=== PATIENT | female | born 1975 | race Caucasian/White ===

== ENCOUNTER 2018-02-05 18:52 | Emergency (ER) | payer MEDICAID ==
[~2018-02-05] VITALS: Ht 167.6 cm; Wt 87.0 kg
[~2018-02-05 18:52] MED LIST: LIDO700A5 TOP; LISINOPRIL; MAGN296S50 PO; METH-603 PO; NEBUTONE; ORPH100T2 PO; OXYC30TA88 PO; SENN8.6T19 PO
[2018-02-05 19:28] LABS: INR 0.9 INR; PARTIAL THROMBOPLASTIN TIME 25 SECONDS (22-32); PROTHROMBIN TIME 9.7 SECONDS (9.0-12.0)
[2018-02-05 19:38] LABS: ALANINE AMINOTRANSFERASE 27 U/L (12-78); ALBUMIN 4.1 G/DL (3.4-5.0); ALBUMIN/GLOBULIN RATIO 0.9 (1.1-1.5); ALKALINE PHOSPHATASE 55 IU/L (46-116); ANION GAP 9 (8-16); ASPARTATE AMINO TRANSFERASE 16 U/L (10-37); BILIRUBIN,TOTAL 0.6 MG/DL (0.1-1.0); BLOOD UREA NITROGEN 10 MG/DL (7-18); BUN/CREATININE RATIO 14.5 (6.6-38.0); CALCIUM 9.4 MG/DL (8.5-10.1); CHLORIDE 103 MMOL/L (99-107); CREATININE 0.69 MG/DL (0.40-0.90); POTASSIUM 4.4 MMOL/L (3.5-5.1); SODIUM 139 MMOL/L (135-145); TOTAL CARBON DIOXIDE 27.1 MMOL/L (24-32); TOTAL PROTEIN 8.5 G/DL (6.4-8.2); eGFR > 90 ML/MIN
[2018-02-05 19:41] LABS: GLUCOSE 101 MG/DL (70-104)
[2018-02-05 19:44] LABS: BASOPHILS % (AUTO) 0.6 % (0-1); EOSINOPHILS # (AUTO) 0.1 X10'3 (0-0.9); EOSINOPHILS % (AUTO) 1.2 % (0-6); HEMATOCRIT 41.1 % (35.0-45.0); HEMOGLOBIN 14.1 g/dl (12.0-16.0); LYMPHOCYTES # (AUTO) 1.4 X10'3 (1.1-4.8); LYMPHOCYTES % (AUTO) 20.3 % (21-51); MEAN CORPUSCULAR HGB CONC 34.3 % (33.0-36.5); MEAN CORPUSCULAR VOLUME 90.2 FL (78-98); MEAN PLATELET VOLUME 7.5 FL (7.4-10.4); MONOCYTES # (AUTO) 0.3 X10'3 (0-0.9); MONOCYTES % (AUTO) 4.3 % (2-12); NEUTROPHILS # (AUTO) 5.2 X10'3 (1.8-7.7); NEUTROPHILS % (AUTO) 73.6 % (42-75); PLATELET COUNT 308 X10'3 (140-440); RED BLOOD COUNT 4.55 X10'6 (4.20-5.60); RED CELL DISTRIBUTION WIDTH 13.4 % (11.5-14.5); WHITE BLOOD COUNT 7.1 X10'3 (4.5-11.0)
[2018-02-05] MEDS ORDERED: diphenhydrAMINE 25mg capsule PO ONE (21:20)
[2018-02-05] MEDS ORDERED: proCHLORperazine 10 MG/2 ml inj IM ONE (21:20)
[2018-02-05] MEDS ORDERED: HYDROcodone/acetaminophen 10/325mg tab PO ONE (21:20)
[2018-02-05] MEDS ORDERED: ketorolac trometh inj. 60 MG/2 ML VIAL IM ONE (21:20)
[2018-02-05] MEDS ORDERED: HYDR200T80 PO (21:26)
[2018-02-05] MEDS ORDERED: BUPR-94 PO (21:27)
[2018-02-05] MEDS ORDERED: diphenhydrAMINE 50 mg/ml inj IM ONE (21:35)
[2018-02-05] MEDS ORDERED: HYDROmorphone 2mg tablet PO PRN (22:05)
[2018-02-05 22:49] VITALS: BP 136/84
== END 2018-02-05 22:52 | disposition home or self-care (01) ==
LOC: ER 18:53
DX: M79.1 Myalgia (principal); R07.9 Chest pain, unspecified; R11.2 Nausea with vomiting, unspecified; R42 Dizziness and giddiness; G89.29 Other chronic pain; K21.9 Gastro-esophageal reflux disease without esophagitis; Z90.49 Acquired absence of other specified parts of digestive tract; Z90.710 Acquired absence of both cervix and uterus; Z79.899 Other long term (current) drug therapy; Z56.0 Unemployment, unspecified
CPT/HCPCS: 36415; 71045; 80053; 84484; 85025; 85610; 85730; 93005; 96372; 99285; J0780; J1200; J1885

== ENCOUNTER 2018-07-07 01:02 | Emergency (ER) | payer MEDICAID ==
[~2018-07-07] VITALS: Ht 167.6 cm; Wt 84.0 kg
[~2018-07-07 01:02] MED LIST changes: +BUPR-94 PO; +HYDR200T80 PO; -LIDO700A5 TOP; -LISINOPRIL; -MAGN296S50 PO; -ORPH100T2 PO; -SENN8.6T19 PO
[2018-07-07] MEDS ORDERED: morphine 4 MG/ML inj SYRINge IM ONE (02:00)
[2018-07-07] MEDS ORDERED: ketorolac trometh inj. 60 MG/2 ML VIAL IM ONE (02:00)
[2018-07-07] MEDS ORDERED: proCHLORperazine 10mg tablet PO ONE (02:00)
[2018-07-07 02:23] VITALS: BP 133/89
== END 2018-07-07 02:33 | disposition home or self-care (01) ==
LOC: ER 01:03
DX: S16.1XXA Strain of muscle, fascia and tendon at neck level, initial encounter (principal); K21.9 Gastro-esophageal reflux disease without esophagitis; Z56.0 Unemployment, unspecified; Z90.49 Acquired absence of other specified parts of digestive tract; Z90.710 Acquired absence of both cervix and uterus; X58.XXXA Exposure to other specified factors, initial encounter; Y93.89 Activity, other specified; Y92.89 Other specified places as the place of occurrence of the external cause; Y99.8 Other external cause status
CPT/HCPCS: 96372; 99284; J1885; J2270; Q0164

== ENCOUNTER 2018-07-08 05:28 | Emergency (ER) | payer MEDICAID ==
[~2018-07-08] VITALS: Ht 167.6 cm; Wt 88.7 kg
[2018-07-08] MEDS ORDERED: orphenadrine citrate 60mg/2ml inj. IM ONE ×2 (06:20→07:35)
[2018-07-08] MEDS ORDERED: ketorolac trometh inj. 60 MG/2 ML VIAL IM ONE (06:20)
[2018-07-08] MEDS ORDERED: ondansetron/PF 4mg/2ml inj IM ONE (06:20)
[2018-07-08] MEDS ORDERED: morphine 4 MG/ML inj SYRINge IM ONE (06:20)
[2018-07-08] MEDS ORDERED: morphine 4 MG/ML inj SYRINge IV ONE (06:25)
[2018-07-08] MEDS ORDERED: normal saline 1000ml 1,000 ML IV ONE (06:25)
[2018-07-08] MEDS ORDERED: ketorolac trometh. 30mg/ml inj. IV ONE (06:25)
[2018-07-08] MEDS ORDERED: ondansetron/PF 4mg/2ml inj IV ONE (06:25)
[2018-07-08] MEDS ORDERED: triamcinolone acetonide 40mg/ml inj IM ONE (06:25)
[2018-07-08 08:00] VITALS: BP 128/81
== END 2018-07-08 08:02 | disposition home or self-care (01) ==
LOC: ER 05:29
DX: M54.2 Cervicalgia (principal); K21.9 Gastro-esophageal reflux disease without esophagitis; G89.29 Other chronic pain; Z56.0 Unemployment, unspecified; Z90.49 Acquired absence of other specified parts of digestive tract; Z90.710 Acquired absence of both cervix and uterus; Z98.890 Other specified postprocedural states; Z79.899 Other long term (current) drug therapy
CPT/HCPCS: 20552; 96361; 96372; 96374; 96375; 99284; J1885; J2270; J2360; J2405; J3301; J7030

== ENCOUNTER 2018-09-28 09:57 | Emergency (ER) | payer MEDICAID ==
[~2018-09-28 09:57] MED LIST changes: +ONDA8TAB9 PO
== END 2018-09-28 11:20 | disposition left against medical advice (07) ==
LOC: ER 09:57
DX: M54.2 Cervicalgia (principal); Z53.21 Procedure and treatment not carried out due to patient leaving prior to being seen by health care provider

== ENCOUNTER 2019-01-31 00:57 | Emergency (ER) | payer MEDICAID ==
[~2019-01-31] VITALS: Ht 167.6 cm; Wt 78.2 kg
[2019-01-31 01:06] VITALS: BP 183/121
[2019-01-31] MEDS ORDERED: methylPREDNISolone sod succ 125mg/2ml vial IM ONE (02:35)
[2019-01-31] MEDS ORDERED: ketorolac trometh inj. 60 MG/2 ML VIAL IM ONE (02:35)
== END 2019-01-31 02:51 | disposition home or self-care (01) ==
LOC: ER 00:58
DX: R51 Headache (principal); M79.641 Pain in right hand; M79.642 Pain in left hand; G89.29 Other chronic pain; K21.9 Gastro-esophageal reflux disease without esophagitis; Z90.49 Acquired absence of other specified parts of digestive tract; Z90.710 Acquired absence of both cervix and uterus; Z98.890 Other specified postprocedural states; Z56.0 Unemployment, unspecified; Z79.899 Other long term (current) drug therapy
CPT/HCPCS: 96372; 99283; J1885; J2930

== ENCOUNTER 2019-03-01 02:09 | Emergency (ER) | payer MEDICAID ==
[~2019-03-01] VITALS: Ht 162.6 cm; Wt 74.8 kg
[2019-03-01] MEDS ORDERED: ibuprofen 200mg tablet PO ONE (03:25)
[2019-03-01] MEDS ORDERED: morphine 4 MG/ML inj SYRINge IM ONE ×2 (03:25→04:10)
[2019-03-01] MEDS ORDERED: HYDROmorphone 1 mg/ml syringe IV ONE (04:30)
[2019-03-01] MEDS ORDERED: ketorolac tromethamine 15mg/ml inj. IV ONE (04:30)
--- NOTE | 2019-03-01 05:29 | NUR ---
PT APPEARS TO BE SLEEPING COMFORTABLY
[2019-03-01] MEDS ORDERED: CYCL-1 PO (05:34)
[2019-03-01] MEDS ORDERED: HYDR-4353 PO (05:34)
[2019-03-01 05:37] VITALS: BP 145/95
== END 2019-03-01 05:45 | disposition home or self-care (01) ==
LOC: ER 02:10
DX: M25.512 Pain in left shoulder (principal); K21.9 Gastro-esophageal reflux disease without esophagitis; G89.29 Other chronic pain; F12.90 Cannabis use, unspecified, uncomplicated; F17.200 Nicotine dependence, unspecified, uncomplicated; Z90.49 Acquired absence of other specified parts of digestive tract; Z90.710 Acquired absence of both cervix and uterus; Z98.890 Other specified postprocedural states; Z79.899 Other long term (current) drug therapy; Z56.0 Unemployment, unspecified
CPT/HCPCS: 29105; 73030; 96372; 96374; 96375; 99283; J1170; J1885; J2270

== ENCOUNTER 2020-08-07 09:24 | Emergency (ER) | payer MEDICAID ==
[~2020-08-07] VITALS: Ht 167.6 cm; Wt 104.5 kg
[~2020-08-07 09:24] MED LIST changes: +CYCL-1 PO; +OXYC30TA PO; -OXYC30TA88 PO
[2020-08-07 10:08] VITALS: BP 143/71
--- NOTE | 2020-08-07 10:09 | NUR ---
R/T AT BEDSIDE, PT GETING BREATHING TREATMENT, NO NEEDS AT THIS TIME
[2020-08-07] MEDS ORDERED: SULF1TAB49 PO (10:18)
== END 2020-08-07 10:33 | disposition home or self-care (01) ==
LOC: ER 09:26
DX: L03.114 Cellulitis of left upper limb (principal); M79.602 Pain in left arm; M25.532 Pain in left wrist; K21.9 Gastro-esophageal reflux disease without esophagitis; G89.29 Other chronic pain; F31.9 Bipolar disorder, unspecified; F12.90 Cannabis use, unspecified, uncomplicated; F15.90 Other stimulant use, unspecified, uncomplicated; Z90.49 Acquired absence of other specified parts of digestive tract; Z90.710 Acquired absence of both cervix and uterus; Z98.890 Other specified postprocedural states; Z56.0 Unemployment, unspecified; Z79.2 Long term (current) use of antibiotics; Z79.899 Other long term (current) drug therapy
CPT/HCPCS: 99284

== ENCOUNTER 2020-11-18 05:53 | Emergency (ER) | payer MEDICAID ==
[~2020-11-18] VITALS: Ht 167.6 cm; Wt 100.0 kg
[2020-11-18 06:00] VITALS: BP 127/84
== END 2020-11-18 07:36 | disposition left against medical advice (07) ==
LOC: ER 05:54
DX: R06.02 Shortness of breath (principal); R51.9 Headache, unspecified; R05 Cough; Z53.21 Procedure and treatment not carried out due to patient leaving prior to being seen by health care provider

== ENCOUNTER → 2021-01-28 | Emergency (ER) | payer MEDICAID ==
[~2021-01-28] VITALS: Ht 167.6 cm; Wt 97.3 kg
[~2021-01-28] MED LIST changes: +ketorolac tromethamine 15mg/ml inj. IM ONE
[2021-01-28 04:13] VITALS: BP 91/53
== END | disposition home or self-care (01) ==
LOC: ER 02:03
DX: M25.532 Pain in left wrist (principal); M54.2 Cervicalgia; K21.9 Gastro-esophageal reflux disease without esophagitis; G89.29 Other chronic pain; F31.9 Bipolar disorder, unspecified; Z98.890 Other specified postprocedural states; F12.90 Cannabis use, unspecified, uncomplicated; F15.90 Other stimulant use, unspecified, uncomplicated; Z90.49 Acquired absence of other specified parts of digestive tract; Z90.710 Acquired absence of both cervix and uterus; Z56.0 Unemployment, unspecified; Z79.899 Other long term (current) drug therapy
CPT/HCPCS: 29125; 73110; 96372; 99283; J1885

== ENCOUNTER 2023-01-16 09:01 | Emergency (ER) | payer MEDICAID ==
[~2023-01-16] VITALS: Ht 167.6 cm; Wt 90.9 kg
[~2023-01-16 09:01] MED LIST changes: -ketorolac tromethamine 15mg/ml inj. IM ONE
[2023-01-16] MEDS ORDERED: morphine IR (immed. release) 30mg tablet PO STA (09:57)
[2023-01-16] MEDS ORDERED: MORP15TA PO (10:50)
[2023-01-16 11:20] VITALS: BP 113/75
== END 2023-01-16 11:26 | disposition home or self-care (01) ==
LOC: ER 09:03
DX: S43.51XA Sprain of right acromioclavicular joint, initial encounter (principal); M75.101 Unspecified rotator cuff tear or rupture of right shoulder, not specified as traumatic; K21.9 Gastro-esophageal reflux disease without esophagitis; G89.29 Other chronic pain; F31.9 Bipolar disorder, unspecified; F12.90 Cannabis use, unspecified, uncomplicated; F15.90 Other stimulant use, unspecified, uncomplicated; Z90.710 Acquired absence of both cervix and uterus; Z90.49 Acquired absence of other specified parts of digestive tract; Z98.890 Other specified postprocedural states; Z56.0 Unemployment, unspecified; Z79.899 Other long term (current) drug therapy; W18.39XA Other fall on same level, initial encounter; Y93.89 Activity, other specified; Y92.89 Other specified places as the place of occurrence of the external cause; Y99.8 Other external cause status
CPT/HCPCS: 73030; 99284; A4565